=== PATIENT | female | born 1940 ===

== ENCOUNTER 2019-02-12 14:52 | Inpatient (IN) | payer OTHER ==
[~2019-02-12] VITALS: Ht 152.4 cm; Wt 84.8 kg
[2019-02-12] MEDS ORDERED: LANTUS SOL100 UNIT/1 (16:07)
--- NOTE | 2019-02-12 16:08 | NUR ---
PACIENTE ALERTA,ACTIVA Y ORIENTADA.REFIERE 3 A 4 ELDRIDGE CON MAREOS,DEBILIDAD Y CANSANCIO.REFIERE MALIK MEDICAMENTOS PARA MAREOS Y HBP JEFF NO RECUEDA CUALES.
--- NOTE | 2019-02-12 18:12 | NUR ---
SE RECIBE PACIENTE ALERTA Y ORIENTADA DEL AREA DE TRIGE SE CONECTA A PACIENTE A MINITOR CARDIACO Y OXIMETRIA DE PULSO. PACIENTE EVALUADA POR EL DR. MCKINNEY SE ORIENTA A PACIENTE SOBRE TRATAMIENTO MEDICO SE EXTRAEN MUESTRAS DE YENNI Y SE ADMSINTIRAN MEDICAMENTOS DEION ORDEN MEDICA BAJO MEDIDAS AASEPTICAS. SE CANALIZA EN AGUSTINAO YAJAIRA #20. SE ARCHANA A PACIENTE EN CAMA BAJO OBSERVACION POR CAMBIOS EN DOWNS CONDICION.
--- NOTE | 2019-02-12 21:26 | NUR ---
6:30PM PACIENTE ALERTA Y ORIENTADA REEVALUADA POR EL DR. MCKINNEY SE ORIENTA A PACIENTE SOBRE TRATAMEINTO MEDICO SE ADMINISTRA MEDICAMENTO DEION ORDEN MEDICA BAJO MEDIDAS ASEPTICAS. DRIP DE CARDIZEM 125MG/100ML BAJANDO A 5 ML/HR. 8:00PM SE ASISTE A PACIENTE Y SE COLOCA ANGELIKA PARA ORINAR SE LIMPIA Y SE GUILLE COMODIDAD. 9:00PM SE ORIENTA A PACIENTE SOBRE TRATAMEITNO MEDICO SE REPITEN SEGUNDAS TROPONINAS DEION ORDEN MEDICA BAJO MEDIDAS ASEPTICAS. SE COLOCA ANGELIKA A APCIENTE PARA QUE PUEDA ORINAR, SE GUILLE COMODIDAD. SE ARCHANA EN CAMA BAJO OBSERVACION POR CAMBIOS EN DOWNS CONDICION. SE PAYTON SIGNOS VITALES ESTABLES AL MOMENTO.
--- NOTE | 2019-02-12 23:00 | NUR ---
SE RECIBE PACIENTE ALERTA Y ORIENTADA EN CASSI KELLI ESFERAS, PRESENTA BUEN PATRON RESPIRATORIO Y JEFFERSON DE DOLOR. CONECTADA A MONITOR CARDIACO PRESENTAN FIBRILACION ATRIAL, SPO2 96% EN AMBIENTE, PACIENTE CANALIZADA X 2 EN [address]RA[address], AMBAS VENOPUNCIONES PATENTES Y LIBRES DE S/S DE FLEBITIS E INFILTRACION, RECIBIENDO 0.9% NSS A 125 ML/HR Y DRIP DE CARDIZEM 125 MG A 5 ML/HR REGULADO POR IVPUMP. PACIENTE PERMANECE EN ALESIA MONITOREO Y EN ESPERA DE SER EVALUADA POR MEDICINA INTERNA CON DR E POLANCO POR FIBRILACION ATRIAL CON RESPUESTA VENTRICULAR RAPIDA.
--- NOTE | 2019-02-13 03:27 | NUR ---
PACIENTE REFIERE ANSIEDAD Y DIFICULTAD PARA DORMIR, SE NOTIFICA A DEEPTHI ALPHONSO QUIEN ORDENA VISTARYL 50 MG PO.
--- NOTE | 2019-02-13 07:00 | NUR ---
SE RECIBE AL PACIENTE ALERTA Y ORIENTADO EN CASSI KELLI ESFERAS. PACIENTE EN CHAVEZ #16 AL NIVEL MAS BAJO, CON BARRANDAS ELEVADAS, CABECERA A 45 GRADOS, CONECTADA A MONITOR CARDIACO Y OXYMETRIA DE PULSO CONTINUA. PACIENTE REFIERE SENTIR QUEMASON Y DOLOR EN EL EPIGASTRICO. LA PACIENTE ESTA CANALIZADA POR DOS EN EL BRAZO DERECHO. AMBAS CANALIZACIONES ESTAN PATENTES. TIENE UN IV FLUID DE 0.9% NSS BAJANDO A 125 ML/HR. Y UN CARDIZEM DE 125MG BAJANDO A 5ML REGULADO POR IV PUMP. SE LE NOTIFICA A LA DEEPTHI. ALPHONSO SOBRE DOLOR Y LA MISMA ORDENA UN EKG, FAMOTIDINE DE 20MG/2ML VIAL Y ORDEN DE TROPONINA.
--- NOTE | 2019-02-13 07:15 | NUR ---
SE ORIENTA AL PACIENTE SOBRE MEDICAMENTO Y MUESTRA A SER COLECTADA DEION ORDEN MEDICA Y PACIENTE REFIERE ENTENDER. SE COLECTAN LAS MUESTRAS Y SE GUILLE EL MEDICAMENTO UTILIZANDO MEDIDAS ASEPTICAS. MUESTRAS SE ENVIAN AL LABORATORIO. SE REALIZA EL EKG Y SE LE MUESTRA A LA DEEPTHI. ALPHONSO PARA SE INTERPRETADO.
--- NOTE | 2019-02-13 07:40 | NUR ---
SE VERIFICA LA CLASIFICACION DEL DOLOR DEL PACIENTE Y LA MISMA REFIERE SENTIR ALIVIO.
--- NOTE | 2019-02-13 09:30 | NUR ---
PACIENTE RECIBE VISITA DEL DR. POLANCO.
[2019-02-20] MEDS ORDERED: METOPROLOL TART50 MG PO (14:59)
[2019-02-20] MEDS ORDERED: ELIQUIS5 MG PO (14:59)
[2019-02-20] MEDS ORDERED: DILTIAZEM HCL120 MG PO (14:59)
[2019-02-20] MEDS ORDERED: ATIVAN1 MG PO (14:59)
== END 2019-02-20 18:29 | disposition home or self-care (01) | DRG 308 ==
LOC: ER 14:52 → SEC-K 02-13 09:56 → MEDI 02-13 09:56 → MEDJ 02-14 16:39
PROVIDERS: ADMIT Internal Medicine
PROC: B246ZZZ Ultrasonography of Right and Left Heart (ICD-10-PCS; 2019-02-13)
PROC: 4A12X4Z Monitoring of Cardiac Electrical Activity, External Approach (ICD-10-PCS; 2019-02-13)
PROC: B030ZZZ Magnetic Resonance Imaging (MRI) of Brain (ICD-10-PCS; principal; 2019-02-19)
DX: I48.0 Paroxysmal atrial fibrillation (principal); I50.21 Acute systolic (congestive) heart failure; I67.82 Cerebral ischemia; F05 Delirium due to known physiological condition; E03.8 Other specified hypothyroidism; I11.0 Hypertensive heart disease with heart failure; I08.3 Combined rheumatic disorders of mitral, aortic and tricuspid valves; G31.1 Senile degeneration of brain, not elsewhere classified; E11.9 Type 2 diabetes mellitus without complications; D18.02 Hemangioma of intracranial structures; Z79.01 Long term (current) use of anticoagulants; Z79.4 Long term (current) use of insulin
CPT/HCPCS: 70551

== ENCOUNTER 2019-04-25 16:15 | Inpatient (IN) | payer OTHER ==
[~2019-04-25] VITALS: Ht 152.4 cm; Wt 68.0 kg
[~2019-04-25 16:15] MED LIST: ATIVAN1 MG PO; DILTIAZEM HCL120 MG PO; ELIQUIS5 MG PO; LANTUS SOL100 UNIT/1; METOPROLOL TART50 MG PO
[2019-04-25] MEDS ORDERED: TOPROL XL25 M1 (17:42)
[2019-04-25] MEDS ORDERED: PLAVIX75 MG (17:42)
[2019-04-25] MEDS ORDERED: ADULT ASPIRIN81 MG (17:43)
[2019-04-25] MEDS ORDERED: PEPCID AC20 MG (17:43)
== END 2019-05-02 16:30 | disposition home or self-care (01) | DRG 309 ==
LOC: ER 16:15 → MEDJ 04-26 12:03
PROVIDERS: ADMIT Internal Medicine
PROC: 4A12X4Z Monitoring of Cardiac Electrical Activity, External Approach (ICD-10-PCS; 2019-04-26)
PROC: B246ZZZ Ultrasonography of Right and Left Heart (ICD-10-PCS; principal; 2019-04-27)
DX: I48.0 Paroxysmal atrial fibrillation (principal); I67.82 Cerebral ischemia; I31.3 Pericardial effusion (noninflammatory); E03.8 Other specified hypothyroidism; E11.65 Type 2 diabetes mellitus with hyperglycemia; I10 Essential (primary) hypertension; I08.3 Combined rheumatic disorders of mitral, aortic and tricuspid valves; Z79.01 Long term (current) use of anticoagulants; Z79.4 Long term (current) use of insulin